=== PATIENT | male | born 1945 | race Caucasian/White ===

== ENCOUNTER 2019-03-06 15:02 | Observation (INO) | payer MEDICARE, BC ==
[2019-03-06] MEDS ORDERED: Sodium Chloride 0.9% 10 ML Syringe FLUSH PRN (15:03)
[2019-03-06] MEDS ORDERED: Sodium Chloride 0.9% 2.5 ML Syringe FLUSH PRN (15:03)
[2019-03-06] MEDS ORDERED: Sodium Chloride 0.9% 10 ML SDV IV PRN (15:03)
--- NOTE | 2019-03-06 15:07 | EDM.PDOC ---
ED HPI GENERAL MEDICAL PROBLEM - General Chief Complaint: Neuro Symptoms/Deficits Stated Complaint: STROKE CODE Time Seen by Provider: 03/06/19 15:03 Source of Information: Reports: Patient, Family History Limitations: Reports: No Limitations - History of Present Illness INITIAL COMMENTS - FREE TEXT/NARRATIVE: HISTORY AND PHYSICAL: History of present illness: Patient is a 73-year-old male presents to the ED today with concern of confusion patient's states that they are watching dogs for a family friend. Patient's states that he had come into the house and didn't remember who they were watching the dog's for his dogs they were. states she got him in the vehicle and was unsure whose vehicle was. Patient states he does feel confused and is unsure of the time. states last known time while is 12:30 PM. Patient's states she did give him a dose of aspirin before coming to the ED. Patient denies fever, chills, chest pain, shortness of breath, or cough. Denies headache, neck stiff ness, change in vision, syncope, or near syncope. Denies nausea, vomiting, abdominal pain, diarrhea, constipation, or dysuria. Has not noted any blood in urine or stool. Patient has been eating and drinking appropriately. Review of systems: As per history of present illness and below otherwise all systems reviewed and negative. Past medical history: As per history of present illness and as reviewed below otherwise noncontributory. Surgical history: As per history of present illness and as reviewed below otherwise noncontributory. Social history: See social history for further information Family history: As per history of present illness and as reviewed below otherwise noncontributory. Physical exam: General: Patient is alert, oriented, and in no acute distress. Patient sitting comfortably on exam table. HEENT: Atraumatic, normocephalic, pupils equal and reactive bilaterally, negative for conjunctival pallor or scleral icterus, mucous membranes moist, TMs normal bilaterally, throat clear, neck supple, nontender, trachea midline. No drooling or trismus noted. No meningeal signs. No hot potato voice noted. Lungs: Clear to auscultation, breath sounds equal bilaterally, chest nontender. Heart: S1S2, regular rate and rhythm without overt murmur Abdomen: Soft, nondistended, nontender. Negative for masses or hepatosplenomegaly. Negative for costovertebral tenderness. Pelvis: Stable nontender. Genitourinary: Deferred. Rectal: Deferred. Skin: Intact, warm, dry. No lesions or rashes noted. Extremities: Atraumatic, negative for cords or calf pain. Neurovascular unremarkable. Neuro: Awake, alert, oriented. Cranial nerves II through XII unremarkable. Cerebellum unremarkable. Motor and sensory unremarkable throughout. Exam nonfocal. Notes: GCS 15. NIH 0. Stroke code was called upon arrival to the ED. Dr. Truong involved in patient care. Dr. Lezama, hospitalist, consulted on patient and will admit to observation. Voices understanding and is agreeable to plan of care. Denies any further questions or concerns at this time. Diagnostics: CBC, CMP, UA, EKG, chest x-ray, head CT, PT/INR, troponin, TSH Therapeutics: None Impression: Episode of confusion, etiology unknown Plan: 1. Admit to observation to Dr. Lezama. Definitive disposition and diagnosis as appropriate pending reevaluation and review of above. Head Pain Score (Numeric/FACES): 2 - Related Data Allergies Allergy/AdvReac Type Severity Reaction Status Date / Time No Known Allergies Allergy Verified 03/06/19 15:07 Home Meds: Home Meds . [No Known Home Meds] 03/06/19 [History] ED ROS GENERAL - Review of Systems Review Of Systems: Comprehensive ROS is negative, except as noted in HPI. ED EXAM, GENERAL - Physical Exam Exam: See Below (See dictation) Course - Vital Signs Last Recorded V/S: Last Vital Signs Temp 97.7 F 03/06/19 15:02 Pulse 72 03/06/19 15:02 Resp 18 03/06/19 15:02 BP 161/91 H 03/06/19 15:02 Pulse Ox 93 L 03/06/19 15:02 - Orders/Labs/Meds Orders: Active Orders 24 hr Category Date Time Status Admission Status [Patient Status] [ADT] Stat ADT 03/06/19 16:26 Ordered Assess Neurological Status [RC] ASDIRECTED Care 03/06/19 15:03 Active Bedrest [RC] ASDIRECTED Care 03/06/19 15:03 Active Blood Glucose Check, Bedside [RC] ONETIME Care 03/06/19 15:03 Active Cardiac Monitoring [RC] . DIRECTED Care 03/06/19 15:03 Active EKG Documentation Completion [RC] STAT Care 03/06/19 15:03 Active Height and Weight [RC] UPON Care 03/06/19 15:03 Active Initiate Acute Stroke Protocol [RC] STAT Care 03/06/19 15:03 Active NIH Stroke Scale [RC] ASDIRECTED Care 03/06/19 15:03 Active Nursing Bedside Swallow Screen [RC] ASDIRECTED Care 03/06/19 15:03 Active Oxygen Therapy [RC] ASDIRECTED Care 03/06/19 15:03 Active Stroke Education, General [RC] Click to Edit Care 03/06/19 15:03 Active Vital Signs [RC] Q15M Care 03/06/19 15:03 Active UA RFX BILL AND CULT IF INDIC [URIN] Stat Lab 03/06/19 15:03 Ordered Sodium Chloride 0.9% [Normal Saline] Med 03/06/19 15:03 Active 10 ml IV ASDIRECTED PRN Sodium Chloride 0.9% [Saline Flush] Med 03/06/19 15:03 Active 10 ml FLUSH ASDIRECTED PRN Sodium Chloride 0.9% [Saline Flush] Med 03/06/19 15:03 Active 2.5 ml FLUSH ASDIRECTED PRN Peripheral IV Insertion Adult [OM.PC] Stat Oth 03/06/19 15:03 Ordered Peripheral IV Insertion Adult [OM.PC] Stat Oth 03/06/19 15:03 Ordered Medication Orders Sodium Chloride (Saline Flush) 10 ml FLUSH ASDIRECTED PRN PRN Reason: Keep Vein Open Sodium Chloride (Saline Flush) 2.5 ml FLUSH ASDIRECTED PRN PRN Reason: Keep Vein Open Sodium Chloride (Normal Saline) 10 ml IV ASDIRECTED PRN PRN Reason: IV Use Labs: Laboratory Tests 03/06/19 03/06/19 03/06/19 Range/Units 15:15 15:15 15:15 WBC 9.23 (4.0-11.0) K/uL RBC 5.03 (4.50-5.90) M/uL Hgb 15.3 (13.0-17.0) g/dL Hct 44.9 (38.0-50.0) % MCV 89.3 (80.0-98.0) fL MCH 30.4 (27.0-32.0) pg MCHC 34.1 (31.0-37.0) g/dL RDW Std Deviation 42.0 (28.0-62.0) fl RDW Coeff of Tana 13 (11.0-15.0) % Plt Count 212 (150-400) K/uL MPV 9.00 (7.40-12.00) fL Neut % (Auto) 75.7 (48.0-80.0) % Lymph % (Auto) 13.3 L (16.0-40.0) % [place] % (Auto) 9.1 (0.0-15.0) % Eos % (Auto) 1.1 (0.0-7.0) % Baso % (Auto) 0.8 (0.0-1.5) % Neut # (Auto) 7.0 H (1.4-5.7) K/uL Lymph # (Auto) 1.2 (0.6-2.4) K/uL [place] # (Auto) 0.8 (0.0-0.8) K/uL Eos # (Auto) 0.1 (0.0-0.7) K/uL Baso # (Auto) 0.1 (0.0-0.1) K/uL Nucleated RBC % 0.0 /100WBC Nucleated RBCs # 0 K/uL INR 0.99 APTT 27.9 (18.6-31.3) SEC Sodium 141 (136-148) mmol/L Potassium 3.9 (3.5-5.1) mmol/L Chloride 104 (98-107) mmol/L Carbon Dioxide 25.4 (21.0-32.0) mmol/L BUN 17 (7.0-18.0) mg/dL Creatinine 1.4 H (0.8-1.3) mg/dL Est Cr Clr Drug Dosing TNP Estimated GFR (MDRD) 50.0 ml/min Glucose 96 (74-106) mg/dL Calcium 8.6 (8.5-10.1) mg/dL Total Bilirubin 0.4 (0.2-1.0) mg/dL AST 20 (15-37) IU/L ALT 24 (14-63) IU/L Alkaline Phosphatase 51 (46-116) U/L Troponin I < 0.050 (0.000-0.056) ng/mL Total Protein 7.2 (6.4-8.2) g/dL Albumin 4.0 (3.4-5.0) g/dL Globulin 3.2 (2.6-4.0) g/dL Albumin/Globulin Ratio 1.3 (0.9-1.6) TSH 3rd Generation 3.36 (0.36-3.74) uIU/mL Meds: Medications Generic Name Dose Route Start Last Admin Trade Name Freq PRN Reason Stop Dose Admin Sodium Chloride 10 ml 03/06/19 15:03 Saline Flush FLUSH ASDIRECTED PRN Keep Vein Open Sodium Chloride 2.5 ml 03/06/19 15:03 Saline Flush FLUSH ASDIRECTED PRN Keep Vein Open Sodium Chloride 10 ml 03/06/19 15:03 Normal Saline IV ASDIRECTED PRN IV Use Departure - Departure Time of Disposition: 16:27 Disposition: Refer to Observation Clinical Impression: Confusion - Discharge Information Referrals: PCP,Unknown [Primary Care Provider] - Forms: ED Department Discharge - My Orders Last 24 Hours: My Active Orders 03/06/19 15:03 Assess Neurological Status [RC] ASDIRECTED Bedrest [RC] ASDIRECTED Blood Glucose Check, Bedside [RC] ONETIME Cardiac Monitoring [RC] . DIRECTED EKG Documentation Completion [RC] STAT Height and Weight [RC] UPON Initiate Acute Stroke Protocol [RC] STAT NIH Stroke Scale [RC] ASDIRECTED Nursing Bedside Swallow Screen [RC] ASDIRECTED Oxygen Therapy [RC] ASDIRECTED Stroke Education, General [RC] Click to Edit Vital Signs [RC] Q15M UA RFX BILL AND CULT IF INDIC [URIN] Stat Sodium Chloride 0.9% [Normal Saline] 10 ml IV ASDIRECTED PRN Sodium Chloride 0.9% [Saline Flush] 10 ml FLUSH ASDIRECTED PRN Sodium Chloride 0.9% [Saline Flush] 2.5 ml FLUSH ASDIRECTED PRN Peripheral IV Insertion Adult [OM.PC] Stat Peripheral IV Insertion Adult [OM.PC] Stat 03/06/19 16:26 Admission Status [Patient Status] [ADT] Stat - Assessment/Plan Last 24 Hours: My Active Orders 03/06/19 15:03 Assess Neurological Status [RC] ASDIRECTED Bedrest [RC] ASDIRECTED Blood Glucose Check, Bedside [RC] ONETIME Cardiac Monitoring [RC] . DIRECTED EKG Documentation Completion [RC] STAT Height and Weight [RC] UPON Initiate Acute Stroke Protocol [RC] STAT NIH Stroke Scale [RC] ASDIRECTED Nursing Bedside Swallow Screen [RC] ASDIRECTED Oxygen Therapy [RC] ASDIRECTED Stroke Education, General [RC] Click to Edit Vital Signs [RC] Q15M UA RFX BILL AND CULT IF INDIC [URIN] Stat Sodium Chloride 0.9% [Normal Saline] 10 ml IV ASDIRECTED PRN Sodium Chloride 0.9% [Saline Flush] 10 ml FLUSH ASDIRECTED PRN Sodium Chloride 0.9% [Saline Flush] 2.5 ml FLUSH ASDIRECTED PRN Peripheral IV Insertion Adult [OM.PC] Stat Peripheral IV Insertion Adult [OM.PC] Stat 03/06/19 16:26 Admission Status [Patient Status] [ADT] Stat
--- NOTE | 2019-03-06 15:21 | CT ---
INDICATION: Amnesia. COMPARISON: None available. TECHNIQUE: CT examination of the head was performed with 3 mm thick axial sections without intravenous contrast. Images were obtained from the vertex of the skull through the skull base, and I examined the images with the brain and bone windows. Please note that all CT scans at this facility use dose modulation, iterative reconstruction, and/or weight-based dosing when appropriate to reduce radiation dose to as low as reasonably achievable. FINDINGS: : The brain is normal in appearance for the patient`s age on today`s study, with no sign of mass lesion, mass effect, hemorrhage, or edema. The ventricles and sulci are normal in appearance for the patient`s age. The visualized portions of the orbits are normal in appearance. The visualized portions of the paranasal sinuses and mastoids are clear. The osseous structures are normal in their appearance with no sign of abnormality in the skull base or calvarium. IMPRESSION: Normal noncontrast CT of the head for the patient`s age. Please note that all CT scans at this facility use dose modulation, iterative reconstruction, and/or weight-based dosing when appropriate to reduce radiation dose to as low as reasonably achievable. Dictated by Jerry Elizabeth MD @ Mar 06 2019 3:17PM Signed by Dr. Jerry Elizabeth @ Mar 06 2019 3:19PM
--- NOTE | 2019-03-06 15:54 | CR ---
EXAM DATE: 03/06/19 PATIENT'S AGE: 73 Chest: Portable view of the chest was obtained. Comparison: No prior chest x-ray. Heart size is normal. Tortuous thoracic aorta is seen. Lungs are clear with no acute parenchymal change. Bony structures are grossly intact. Impression: 1. Nothing acute is appreciated on portable chest x-ray. Diagnostic code #1 Report Signed by Proxy. OPAL
[2019-03-06 16:04] LABS: BLOOD UREA NITROGEN,BUN 17 mg/dL (7.0-18.0); CARBON DIOXIDE,CO2 25.4 mmol/L (21.0-32.0); CHLORIDE,CL 104 mmol/L (98-107); GLUCOSE RANDOM 96 mg/dL (74-106); POTASSIUM,K 3.9 mmol/L (3.5-5.1); SODIUM,NA 141 mmol/L (136-148)
[2019-03-06] MEDS ORDERED: Sodium Chloride 0.9% 1,000 ML IV SCH (17:00)
--- NOTE | 2019-03-06 17:03 | PCM.HP.2 ---
<Austin Whittaker - Last Filed: 03/06/19 18:38> H&P History of Present Illness - General Date of Service: 03/06/19 Admit Problem/Dx: Admission Diagnosis/Problem Admission Diagnosis/Problem Confusion - History of Present Illness Initial Comments - Free Text/Narative: 73 y/o male with no significant PMH who presented to the ER after his found him more confused. According to the patient, he does not remember a period of time when he was at home . He states he last remembers being in his shop and then being inside his house. Does not recall a period of time between the shop and being inside the house. Apparently, his noticed him acting more confused some slurred speech and unbalanced walking. His gave him full dose aspirin at home and brought him to the ER. In the ER, he was found to be hypertensive with SBP 160. CT head was negative for intracranial hemorrhage or masses. Troponin negative. EKG showed sinus rhythm, no ST changes. When I evaluated the patient, he was in bed. No acute distress. States that he felt better. Denied any neurological deficits. Sensation, strength intact. However, he still had difficulty remember specific time period. Denied any change in vision, nausea, vomiting, chest pain, dyspnea, abdominal pain, dysuria, diarrhea, blood in stool. Head Pain Score (Numeric/FACES): 2 - Related Data Allergies/Adverse Reactions: Allergies Allergy/AdvReac Type Severity Reaction Status Date / Time No Known Allergies Allergy Verified 03/06/19 17:07 Home Medications: Home Meds Aspirin 81 mg PO DAILY #30 tab.chew 03/07/19 [Rx] atorvaSTATin [Lipitor] 40 mg PO BEDTIME 30 Days #30 tablet 03/07/19 [Rx] Past Medical History HEENT History: Reports: None Cardiovascular History: Reports: None Respiratory History: Reports: None Gastrointestinal History: Reports: None Genitourinary History: Reports: None Musculoskeletal History: Reports: Back Pain, Chronic Neurological History: Reports: None Psychiatric History: Reports: None Endocrine/Metabolic History: Reports: None Hematologic History: Reports: None Immunologic History: Reports: AIDS Oncologic (Cancer) History: Reports: Breast Dermatologic History: Reports: None - Past Surgical History Head Surgeries/Procedures: Reports: None HEENT Surgical History: Reports: None Cardiovascular Surgical History: Reports: None Respiratory Surgical History: Reports: None GI Surgical History: Reports: None Male Surgical History: Reports: None Endocrine Surgical History: Reports: None Neurological Surgical History: Reports: None Musculoskeletal Surgical History: Reports: None Oncologic Surgical History: Reports: Biopsy of Breast, Mastectomy Dermatological Surgical History: Reports: None Social & Family History - Family History Family Medical History: Noncontributory - Tobacco Use Smoking Status *Q: Never Smoker Second Hand Smoke Exposure: No - Caffeine Use Caffeine Use: Reports: None - Alcohol Use Days Per Week of Alcohol Use: 7 Number of Drinks Per Day: 1 Total Drinks Per Week: 7 - Recreational Drug Use Recreational Drug Use: No H&P Review of Systems - Review of Systems: Review Of Systems: Comprehensive ROS is negative, except as noted in HPI. Exam - Exam Exam: See Below - Vital Signs Vital Signs: Last Vital Signs Temp 36.5 C 03/06/19 15:02 Pulse 72 03/06/19 15:02 Resp 18 03/06/19 15:02 BP 161/91 H 03/06/19 15:02 Pulse Ox 93 L 03/06/19 15:02 Weight: 129.6 kg - Exam General: Alert, Oriented, Cooperative HEENT: Pupils Equal, Pupils Reactive, Other (dry oral mucosa) Lungs: Clear to Auscultation, Normal Respiratory Effort. No: Crackles, Wheezing Cardiovascular: Regular Rate, Regular Rhythm GI/Abdominal Exam: Normal Bowel Sounds, Soft, Non-Tender, No Distention Back Exam: Normal Inspection. No: CVA Tenderness (L), CVA Tenderness (R) Extremities: Normal Inspection, Normal Range of Motion, Non-Tender, No Pedal Edema Skin: Warm, Dry Neurological: Cranial Nerves Intact Neuro Extensive - Mental Status: Alert, Oriented x3 Neuro Extensive - Motor, Sensory, Reflexes: CN II-XII Intact - Patient Data Lab Results Last 24 hrs: Laboratory Results - last 24 hr 03/06/19 03/06/19 03/06/19 Range/Units 15:15 15:15 15:15 WBC 9.23 (4.0-11.0) K/uL RBC 5.03 (4.50-5.90) M/uL Hgb 15.3 (13.0-17.0) g/dL Hct 44.9 (38.0-50.0) % MCV 89.3 (80.0-98.0) fL MCH 30.4 (27.0-32.0) pg MCHC 34.1 (31.0-37.0) g/dL RDW Std Deviation 42.0 (28.0-62.0) fl RDW Coeff of Tana 13 (11.0-15.0) % Plt Count 212 (150-400) K/uL MPV 9.00 (7.40-12.00) fL Neut % (Auto) 75.7 (48.0-80.0) % Lymph % (Auto) 13.3 L (16.0-40.0) % [place] % (Auto) 9.1 (0.0-15.0) % Eos % (Auto) 1.1 (0.0-7.0) % Baso % (Auto) 0.8 (0.0-1.5) % Neut # (Auto) 7.0 H (1.4-5.7) K/uL Lymph # (Auto) 1.2 (0.6-2.4) K/uL [place] # (Auto) 0.8 (0.0-0.8) K/uL Eos # (Auto) 0.1 (0.0-0.7) K/uL Baso # (Auto) 0.1 (0.0-0.1) K/uL Nucleated RBC % 0.0 /100WBC Nucleated RBCs # 0 K/uL INR 0.99 APTT 27.9 (18.6-31.3) SEC Sodium 141 (136-148) mmol/L Potassium 3.9 (3.5-5.1) mmol/L Chloride 104 (98-107) mmol/L Carbon Dioxide 25.4 (21.0-32.0) mmol/L BUN 17 (7.0-18.0) mg/dL Creatinine 1.4 H (0.8-1.3) mg/dL Est Cr Clr Drug Dosing TNP Estimated GFR (MDRD) 50.0 ml/min Glucose 96 (74-106) mg/dL Calcium 8.6 (8.5-10.1) mg/dL Total Bilirubin 0.4 (0.2-1.0) mg/dL AST 20 (15-37) IU/L ALT 24 (14-63) IU/L Alkaline Phosphatase 51 (46-116) U/L Troponin I < 0.050 (0.000-0.056) ng/mL Total Protein 7.2 (6.4-8.2) g/dL Albumin 4.0 (3.4-5.0) g/dL Globulin 3.2 (2.6-4.0) g/dL Albumin/Globulin Ratio 1.3 (0.9-1.6) TSH 3rd Generation 3.36 (0.36-3.74) uIU/mL Result Diagrams: 03/06/19 15:15 03/06/19 15:15 Problem List Initiated/Reviewed/Updated: Yes Orders Last 24hrs: Active Orders 24 hr Category Date Time Status Admission Status [Patient Status] [ADT] Stat ADT 03/06/19 16:26 Active Assess Neurological Status [RC] Q6H Care 03/06/19 15:03 Active Cardiac Monitoring [RC] . DIRECTED Care 03/06/19 15:03 Active Intake and Output [RC] QSHIFT Care 03/06/19 16:56 Active NIH Stroke Scale [RC] Q6H Care 03/06/19 15:03 Active Nursing Bedside Swallow Screen [RC] ASDIRECTED Care 03/06/19 15:03 Active Oxygen Therapy [RC] PRN Care 03/06/19 16:56 Active Stroke Education, General [RC] Click to Edit Care 03/06/19 15:03 Active Up With Assistance [RC] ASDIRECTED Care 03/06/19 16:56 Active VTE/DVT Education [RC] PER UNIT ROUTINE Care 03/06/19 16:56 Active Vital Signs [RC] Q4H Care 03/06/19 16:56 Active Consult to Physical Therapy [PT Evaluation and Cons 03/06/19 16:58 Active Treatment] [CONS] Routine Regular Diet [DIET] Diet 03/06/19 Dinner Active Ang Neck w wo Cont [MR] Urgent Exams 03/06/19 16:59 Ordered Brain w wo Cont [MR] Routine Exams 03/06/19 16:59 Ordered CBC WITH AUTO DIFF [HEME] AM Lab 03/07/19 05:11 Ordered COMPREHENSIVE METABOLIC PN,CMP [CHEM] AM Lab 03/07/19 05:11 Ordered GLYCOSYLATED HEMOGLOBIN,HGBA1C [CHEM] Routine Lab 03/06/19 17:00 Ordered LIPID PANEL [CHEM] AM Lab 03/07/19 05:11 Ordered UA RFX BILL AND CULT IF INDIC [URIN] Stat Lab 03/06/19 15:03 Ordered VITAMIN B12 [CHEM] AM Lab 03/07/19 05:11 Ordered Aspirin Med 03/07/19 09:00 Ordered 81 mg PO DAILY Heparin Sodium Med 03/06/19 17:00 Active 5,000 units SUBCUT Q8H Sodium Chloride 0.9% [Normal Saline] Med 03/06/19 15:03 Active 10 ml IV ASDIRECTED PRN Sodium Chloride 0.9% [Normal Saline] 1,000 ml Med 03/06/19 17:00 Ordered IV BOLUS Sodium Chloride 0.9% [Saline Flush] Med 03/06/19 15:03 Active 10 ml FLUSH ASDIRECTED PRN Sodium Chloride 0.9% [Saline Flush] Med 03/06/19 15:03 Active 2.5 ml FLUSH ASDIRECTED PRN Peripheral IV Insertion Adult [OM.PC] Stat Oth 03/06/19 15:03 Ordered Peripheral IV Insertion Adult [OM.PC] Stat Oth 03/06/19 15:03 Ordered Resuscitation Status Routine Resus Stat 03/06/19 16:56 Ordered Medication Orders Aspirin (Aspirin) 81 mg PO DAILY JIM Heparin Sodium (Porcine) (Heparin Sodium) 5,000 units SUBCUT Q8H JIM Sodium Chloride (Normal Saline) 1,000 mls @ 999 mls/hr IV BOLUS JIM Stop: 03/06/19 18:01 Sodium Chloride (Saline Flush) 10 ml FLUSH ASDIRECTED PRN PRN Reason: Keep Vein Open Sodium Chloride (Saline Flush) 2.5 ml FLUSH ASDIRECTED PRN PRN Reason: Keep Vein Open Sodium Chloride (Normal Saline) 10 ml IV ASDIRECTED PRN PRN Reason: IV Use Assessment/Plan Comment:: A: 1. Amnesia 2. Acute kidney injury P: 1. Amnesia- unsure etiology. Suspect TIA vs [employer]. Ordered MRI brain and neck w/ wo contrast. Aspirin daily. Neuro checks Q6H. PT evaluation. 2. Acute kidney injury- will bolus with 1 L NS and recheck in the morning. Dispo: 1-2 days <Jean Lezama - Last Filed: 03/08/19 12:04> H&P History of Present Illness - General Admit Problem/Dx: Admission Diagnosis/Problem Admission Diagnosis/Problem Confusion Exam - Vital Signs Vital Signs: Last Vital Signs Temp 36.1 C 03/07/19 11:48 Pulse 59 L 03/07/19 11:48 Resp 18 03/07/19 11:48 BP 135/79 03/07/19 11:48 Pulse Ox 95 03/07/19 11:48 - Patient Data Result Diagrams: 03/07/19 06:23 03/07/19 06:23 Orders Last 24hrs: Active Orders 24 hr Category Date Time Status Ready for Discharge [RC] PER UNIT ROUTINE Care 03/07/19 12:10 Active Assessment/Plan Comment:: I performed a history and physical exam of the patient and discussed management with resident. I have reviewed the residents note and agree with documented findings and plan unless otherwise specified in my note.
[2019-03-06] MEDS ORDERED: Gadobenate Dimeglumine 529 MG/ML 20 ML SDV IVPUSH ONE (17:22)
[2019-03-06 17:33] LABS: HEMOGLOBIN A1C 5.5 % (4.5-6.2)
[2019-03-06] MEDS: Heparin Sodium 5,000 Units/ML Vial SUBCUT SCH (18:47)
[2019-03-06] MEDS ORDERED: Sodium Chloride 0.9% 1,000 ML IV ONE (19:00)
[2019-03-06] MEDS ORDERED: Labetalol 100 MG/20 ML MDV IVPUSH ONE (19:17)
[2019-03-06] MEDS ORDERED: Labetalol 100 MG/20 ML MDV IVPUSH PRN (20:25)
[2019-03-06] MEDS ORDERED: atorvaSTATin 40 MG Tab PO SCH (22:21)
[2019-03-07] MEDS: Heparin Sodium 5,000 Units/ML Vial SUBCUT SCH ×2 (00:31→09:29)
[2019-03-07 07:30] LABS: CARBON DIOXIDE,CO2 25.7 mmol/L (21.0-32.0); POTASSIUM,K 4.7 mmol/L (3.5-5.1)
[2019-03-07] MEDS ORDERED: Aspirin 81 MG Tab.Chew PO SCH (09:00)
--- NOTE | 2019-03-07 11:48 | MR ---
EXAM DATE: 03/06/19 PATIENT'S AGE: 73 Patient: MARLENE JOLLEY Facility: [facility] Site Site : [id number] Study: MRI-Head W/ and W/O Cont [id number]/[id number] 6:46:42 PM Ordering Physician: GORDON CARY Final Report: INDICATION: TIA and confusion. TECHNIQUE: Brain MRI with contrast. The following sequences were obtained: Sagittal T1 weighted sequence. DWI and ADC mapping sequences. Axial FLAIR and NA T2 weighted sequences. SWI sequence. 3D T1 weighted post-contrast sequences. Gadolinium based contrast agent was used. COMPARISON: CT head from 03/06/2019. FINDINGS: No acute infarct. Diffuse supratentorial and infratentorial pachymeningeal thickening and enhancement. Small, 3-4 nodule of enhancement is seen along the floor of the right middle cranial fossa. Nonspecific but could be vascular. 4 millimeter diameter FLAIR hyperintense subdural collection along the right parietal convexity. Scattered T2 hyperintensities within the supratentorial white matter, nonspecific but statistically most likely reflect chronic small vessel ischemic disease. No mass effect or herniation. No hydrocephalus or extra -axial collections. The pituitary gland, parasellar structures and optic chiasm are normal. Small, 1 centimeter pineal gland cyst. All the major intracranial vascular structures demonstrate normal flow-related signal. The orbital contents are normal. No calvarial or skull base marrow signal abnormality. No obstructive sinus disease. No extracranial soft tissue findings. IMPRESSION: 1. Diffuse pachymeningeal thickening and enhancement and small right parietal convexity subdural hematoma or a hematohygroma. These findings most likely represents sequelae of intracranial hypotension. Inflammatory and neoplastic processes are considered less likely given the diffuse nature of this enhancement. 2. Small nodule of enhancement is seen along the floor of the right middle cranial fossa, nonspecific. 3. No evidence of acute infarction. 4. Mild chronic small vessel ischemic disease within the supratentorial white matter. Dictated by Chris Szymanski MD @ Mar 06 2019 7:28PM Signed by: Chris Szymanski MD @03/06/2019 8:07:13 PM (Electronic Signature) MRI brain (without and with intravenous contrast) Technique: T1 sagittal and coronal; T1, T2, FLAIR and diffusion axial; postcontrast T1 fat suppressed sagittal, coronal and axial images were obtained to the brain. Comparison: No prior intracranial imaging is available. Findings: Ventricles along with basal cisterns and sulci over the convexities are mildly prominent. Normal signal void is seen within the major cerebral arteries within the skull base. Minimal areas of increased signal seen within the periventricular white matter on the left side. Minimal area of increased signal within the subcortical white matter within the left frontal region. No other abnormal signal is seen within the brain parenchyma. No midline shift or mass effect is seen. No acute diffusion abnormalities are seen. Slightly prominent enhancement of the meninges around both sides of the brain is noted. No abnormal enhancement is seen within the brain parenchyma. Impression: 1. Minimally prominent enhancement of the meninges around the brain. Please exclude any symptoms of meningitis. Findings could also represent residual change from old inflammatory process. This enhancement does not appear nodular to indicate a metastatic etiology. 2. Minimal areas of increased signal within the periventricular and subcortical white matter which are not unusual for a patient of this age. 3. No acute diffusion abnormalities are seen. Diagnostic code #3 Report Signed by Proxy. OPAL
--- NOTE | 2019-03-07 11:52 | MR ---
EXAM DATE: 03/06/19 PATIENT'S AGE: 73 Patient: MARLENE JOLLEY Facility: [facility] Site Site : 1945 Study: MRI-Neck Angio W/ and W/O Cont [id number]/13/2019 6:50:35 PM Ordering Physician: GORDON CARY Final Report: INDICATION: TIA and confusion. TECHNIQUE: 3D TOF and gadolinium bolus MRA of the neck with 3D MIP reconstructions provided. All measurements are based on NASCET criteria. COMPARISON : None. FINDINGS: There is a normal 3 vessel configuration of the aortic arch, with no substantial narrowing of the great vessel origins. The proximal subclavian arteries are normal in course and caliber. The cervical carotid arteries are normal in course and caliber. The cervical vertebral arteries are normal in course and caliber. IMPRESSION: IMPRESSION1. Normal appearance of the cervical arterial circulation, with no stenosis, occlusion or abnormal dilatation. Dictated by Chris Szymanski MD @ Mar 06 2019 7:28PM Signed by: Chris Szymanski MD @03/06/2019 8:12:46 PM (Electronic Signature) Report Signed by Proxy. OPAL
--- NOTE | 2019-03-07 21:05 | PCM.DCSUM1 ---
<Austin Whittaker - Last Filed: 03/08/19 20:54> Discharge Summary - Hospital Course Free Text/Narrative:: 73 y/o male with no significant PMH who presented to the ER for confusion. The patient could not recollect a period in time at home and his had noticed some slurred speech. In the ER, he was found to be hypertensive 160/90. EKG unremarkable. CT head was negative for any intracranial hemorrhage, masses. He was admitted for presumed transient ischemic attack. MRI brain, neck did not show carotid stenosis or any acute ischemic findings. He did not have any neurological deficits on examination. He was discharged home on aspirin and atorvastatin. Instructed to follow-up with his PCP and neurology. - Discharge Data Discharge Date: 03/07/19 Discharge Disposition: Home, Self-Care 01 Condition: Good - Referral to Home Health Primary Care Physician: PCP Unknown - Patient Summary/Data Consults: Consultations 03/06/19 16:58 Consult to Physical Therapy [PT Evaluation and Treatment] [CONS] Routine - Patient Instructions Diet: Heart Healthy Diet Activity: As Tolerated Notify Provider of: Fever, Increased Pain, Nausea and/or Vomiting - Discharge Plan Prescriptions/Med Rec: Aspirin 81 mg PO DAILY #30 tab.chew atorvaSTATin [Lipitor] 40 mg PO BEDTIME 30 Days #30 tablet Home Medications: Home Meds Aspirin 81 mg PO DAILY #30 tab.chew 03/07/19 [Rx] atorvaSTATin [Lipitor] 40 mg PO BEDTIME 30 Days #30 tablet 03/07/19 [Rx] Patient Handouts: Transient Ischemic Attack, [id number], Atorvastatin tablets , Preventing Cerebrovascular Disease, Aspirin capsules or tablets extended release Referrals: Rayshawn Guzman PA-C [Ordering Only Provider] - 03/19/19 10:00 am Breanne Nevarez MD [Physician] - - Discharge Summary/Plan Comment DC Time >30 min.: No - Patient Data Vitals - Most Recent: Last Vital Signs Temp 36.1 C 03/07/19 11:48 Pulse 59 L 03/07/19 11:48 Resp 18 03/07/19 11:48 BP 135/79 03/07/19 11:48 Pulse Ox 95 03/07/19 11:48 Weight - Most Recent: 129.6 kg I&O - Last 24 hours: Intake & Output 1103/07/19 03/07/19 06:59 14:59 22:59 Intake Total 1500 750 Output Total 1650 850 Balance -150 -100 Lab Results - Last 24 hrs: Laboratory Results - last 24 hr 03/07/19 03/07/19 Range/Units 06:23 06:23 WBC 6.28 (4.0-11.0) K/uL RBC 4.70 (4.50-5.90) M/uL Hgb 14.3 (13.0-17.0) g/dL Hct 41.9 (38.0-50.0) % MCV 89.1 (80.0-98.0) fL MCH 30.4 (27.0-32.0) pg MCHC 34.1 (31.0-37.0) g/dL RDW Std Deviation 41.8 (28.0-62.0) fl RDW Coeff of Tana 13 (11.0-15.0) % Plt Count 164 (150-400) K/uL MPV 9.90 (7.40-12.00) fL Neut % (Auto) 65.3 (48.0-80.0) % Lymph % (Auto) 19.6 (16.0-40.0) % Barry % (Auto) 11.9 (0.0-15.0) % Eos % (Auto) 2.1 (0.0-7.0) % Baso % (Auto) 1.1 (0.0-1.5) % Neut # (Auto) 4.1 (1.4-5.7) K/uL Lymph # (Auto) 1.2 (0.6-2.4) K/uL Barry # (Auto) 0.8 (0.0-0.8) K/uL Eos # (Auto) 0.1 (0.0-0.7) K/uL Baso # (Auto) 0.1 (0.0-0.1) K/uL Nucleated RBC % 0.0 /100WBC Nucleated RBCs # 0 K/uL Sodium 141 (136-148) mmol/L Potassium 4.7 (3.5-5.1) mmol/L Chloride 108 H (98-107) mmol/L Carbon Dioxide 25.7 (21.0-32.0) mmol/L BUN 15 (7.0-18.0) mg/dL Creatinine 1.3 (0.8-1.3) mg/dL Est Cr Clr Drug Dosing 60.60 mL/min Estimated GFR (MDRD) 54.4 ml/min Glucose 89 (74-106) mg/dL Calcium 8.5 (8.5-10.1) mg/dL Total Bilirubin 0.7 (0.2-1.0) mg/dL AST 19 (15-37) IU/L ALT 24 (14-63) IU/L Alkaline Phosphatase 37 L (46-116) U/L Total Protein 6.4 (6.4-8.2) g/dL Albumin 3.4 (3.4-5.0) g/dL Globulin 3.0 (2.6-4.0) g/dL Albumin/Globulin Ratio 1.1 (0.9-1.6) Triglycerides 65 (0-200) mg/dL Cholesterol 161 (50-200) mg/dL LDL Cholesterol, Calc 92 (60-180) mg/dL VLDL Cholesterol 13 (5-55) mg/dL HDL Cholesterol 56 (40-60) mg/dL Cholesterol/HDL Ratio 2.9 L (3.3-6.0) Vitamin B12 557 (193-986) pg/mL Med Orders - Current: Current Medications Discontinued Medications Aspirin (Aspirin) 81 mg PO DAILY [facility] Last Admin: 03/07/19 09:29 Dose: 81 mg Atorvastatin Calcium (Lipitor) 40 mg PO BEDTIME [facility] Last Admin: 03/07/19 00:31 Dose: 40 mg Gadobenate Dimeglumine (Multihance) 20 ml IVPUSH ONETIME ONE Stop: 03/06/19 17:23 Last Admin: 03/06/19 17:22 Dose: 20 ml Heparin Sodium (Porcine) (Heparin Sodium) 5,000 units SUBCUT Q8H [facility] Last Admin: 03/07/19 09:29 Dose: 5,000 units Sodium Chloride (Normal Saline) 1,000 mls @ 999 mls/hr IV BOLUS JIM Stop: 03/06/19 18:01 Sodium Chloride (Normal Saline) 1,000 mls @ 999 mls/hr IV ASDIRECTED ONE Stop: 03/06/19 20:00 Last Admin: 03/06/19 18:57 Dose: 999 mls/hr Labetalol HCl (Normodyne) 0 mg IVPUSH ONETIME ONE; Protocol Stop: 03/06/19 19:18 Last Admin: 03/06/19 20:14 Dose: Not Given Labetalol HCl (Normodyne) 10 mg IVPUSH Q6H PRN; Protocol PRN Reason: Hypertension Sodium Chloride (Saline Flush) 10 ml FLUSH ASDIRECTED PRN PRN Reason: Keep Vein Open Sodium Chloride (Saline Flush) 2.5 ml FLUSH ASDIRECTED PRN PRN Reason: Keep Vein Open Sodium Chloride (Normal Saline) 10 ml IV ASDIRECTED PRN PRN Reason: IV Use <TejaJean - Last Filed: 03/09/19 21:53> Discharge Summary - Hospital Course HPI Initial Comments: I have performed history and physical and have discussed the patient management with the resident and agree with note above unless stated otherwise in my note. - Referral to Home Health Primary Care Physician: PCP Unknown - Patient Summary/Data Consults: Consultations 03/06/19 16:58 Consult to Physical Therapy [PT Evaluation and Treatment] [CONS] Routine - Patient Data Vitals - Most Recent: Last Vital Signs Temp 36.1 C 03/07/19 11:48 Pulse 59 L 03/07/19 11:48 Resp 18 03/07/19 11:48 BP 135/79 03/07/19 11:48 Pulse Ox 95 03/07/19 11:48 Med Orders - Current: Current Medications Discontinued Medications Aspirin (Aspirin) 81 mg PO DAILY [facility] Last Admin: 03/07/19 09:29 Dose: 81 mg Atorvastatin Calcium (Lipitor) 40 mg PO BEDTIME [facility] Last Admin: 03/07/19 00:31 Dose: 40 mg Gadobenate Dimeglumine (Multihance) 20 ml IVPUSH ONETIME ONE Stop: 03/06/19 17:23 Last Admin: 03/06/19 17:22 Dose: 20 ml Heparin Sodium (Porcine) (Heparin Sodium) 5,000 units SUBCUT Q8H [facility] Last Admin: 03/07/19 09:29 Dose: 5,000 units Sodium Chloride (Normal Saline) 1,000 mls @ 999 mls/hr IV BOLUS JIM Stop: 03/06/19 18:01 Sodium Chloride (Normal Saline) 1,000 mls @ 999 mls/hr IV ASDIRECTED ONE Stop: 03/06/19 20:00 Last Admin: 03/06/19 18:57 Dose: 999 mls/hr Labetalol HCl (Normodyne) 0 mg IVPUSH ONETIME ONE; Protocol Stop: 03/06/19 19:18 Last Admin: 03/06/19 20:14 Dose: Not Given Labetalol HCl (Normodyne) 10 mg IVPUSH Q6H PRN; Protocol PRN Reason: Hypertension Sodium Chloride (Saline Flush) 10 ml FLUSH ASDIRECTED PRN PRN Reason: Keep Vein Open Sodium Chloride (Saline Flush) 2.5 ml FLUSH ASDIRECTED PRN PRN Reason: Keep Vein Open Sodium Chloride (Normal Saline) 10 ml IV ASDIRECTED PRN PRN Reason: IV Use
== END 2019-03-07 14:15 | disposition home or self-care (01) ==
LOC: MW.ED 15:02 → MW.MS 16:38
PROVIDERS: ADMIT Student in an Organized Health Care Education/Training Program; ATTEND Student in an Organized Health Care Education/Training Program
DX: R41.3 Other amnesia (principal); N17.9 Acute kidney failure, unspecified; I10 Essential (primary) hypertension; Z79.82 Long term (current) use of aspirin; Z79.899 Other long term (current) drug therapy
CPT/HCPCS: 36415; 70450; 70549; 70553; 71045; 80053; 80061; 81003; 82607; 83036; 84443; 84484; 85025; 85610; 85730; 93005; 96360; 96361; 96372; 97161; 99285; A9270; A9577; G0378; J1644; J7040; 99284; J7030

== ENCOUNTER 2020-06-03 08:50 | Day surgery (SDC) | payer MEDICARE, BC ==
[~2020-06-03 08:50] MED LIST: Lactated Ringers 1,000 ML IV SCH; Lidocaine 2% 5 ML SDV ONE; Midazolam 1 MG/ML 2 ML SDV ONE; Propofol 200 MG/20 ML SDV ONE; fentaNYL 100 MCG/2 ML SDV ONE
[2020-06-03] MEDS ORDERED: Midazolam 1 MG/ML 2 ML SDV ONE (09:05)
--- NOTE | 2020-06-03 09:22 | PCM.PREANE ---
Preanesthetic Assessment - Anesthesia/Transfusion/Family Hx Anesthesia History: Prior Anesthesia Without Reaction Family History of Anesthesia Reaction: No Transfusion History: No Prior Transfusion(s) Intubation History: Unknown - Review of Systems General: No Symptoms Pulmonary: No Symptoms Cardiovascular: No Symptoms Gastrointestinal: Abdominal Pain, Hematochezia Neurological: No Symptoms Other: Reports: None - Physical Assessment Vital Signs: Last Vital Signs Temp 36.1 C 06/03/20 08:56 Pulse 82 06/03/20 08:56 Resp 16 06/03/20 08:56 BP 137/91 H 06/03/20 08:56 Pulse Ox 98 06/03/20 08:56 Height: 6 ft 2 in Weight: 114.759 kg ASA Class: 2 Mental Status: Alert & Oriented x3 Airway Class: Mallampati = 2 Dentition: Reports: Normal Dentition, Implants (x1 upper front) Thyro-Mental Finger Breadths: 3 Mouth Opening Finger Breadths: 3 ROM/Head Extension: Full Lungs: Clear to Auscultation, Normal Respiratory Effort Cardiovascular: Regular Rate, Regular Rhythm - Allergies Allergies/Adverse Reactions: Allergies Allergy/AdvReac Type Severity Reaction Status Date / Time No Known Allergies Allergy Verified 05/29/20 08:23 - Blood Blood Available: No - Anesthesia Plan Pre-Op Medication Ordered: None - Acknowledgements Anesthesia Type Planned: MAC Pt an Appropriate Candidate for the Planned Anesthesia: Yes Alternatives and Risks of Anesthesia Discussed w Pt/Guardian: Yes Pt/Guardian Understands and Agrees with Anesthesia Plan: Yes PreAnesthesia Questionnaire HEENT History: Reports: Other (See Below) Other HEENT History: wears glasses Cardiovascular History: Reports: None Respiratory History: Reports: None Gastrointestinal History: Reports: Chronic Constipation Genitourinary History: Reports: None Musculoskeletal History: Reports: Back Pain, Chronic Neurological History: Reports: TIA (1 1/2 years ago with memory loss for about and hour, second brain MRI was normal) Psychiatric History: Reports: None Endocrine/Metabolic History: Reports: Obesity/BMI 30+ (BMI 32.5) Hematologic History: Reports: None Immunologic History: Reports: None Oncologic (Cancer) History: Reports: Breast (h/o left breast cancer '03- No BP c uff or i.v. on the left side , please.) Dermatologic History: Reports: None - Past Surgical History Head Surgeries/Procedures: Reports: None HEENT Surgical History: Reports: None Cardiovascular Surgical History: Reports: None Respiratory Surgical History: Reports: None GI Surgical History: Reports: Colonoscopy (few years ago by Dr. Bailey) Male Surgical History: Reports: None Endocrine Surgical History: Reports: None Neurological Surgical History: Reports: None Musculoskeletal Surgical History: Reports: Carpal Tunnel, Hip Replacement ('07) Other Musculoskeletal Surgeries/Procedures:: rt hip replacement Oncologic Surgical History: Reports: Biopsy of Breast Other Oncologic Surgeries/Procedures: breast lumpectomy '03 Dermatological Surgical History: Reports: None - SUBSTANCE USE Tobacco Use Status *Q: Never Tobacco User Days Per Week of Alcohol Use: 7 Number of Drinks Per Day: 1 Total Drinks Per Week: 7 Recreational Drug Use History: No - HOME MEDS Home Medications: Home Meds Ibuprofen [Advil] 1 tab PO ASDIRECTED PRN 05/29/20 [History] bisacodyL [Dulcolax] 1 tab PO ASDIRECTED PRN 05/29/20 [History] - CURRENT (IN HOUSE) MEDS Current Meds: Current Medications Lactated Ringer's (Ringers, Lactated) 1,000 mls @ 125 mls/hr IV ASDIRECTED JIM Discontinued Medications Fentanyl (Sublimaze) Confirm Administered Dose 100 mcg .ROUTE .STK-MED ONE Stop: 06/03/20 08:27 Lidocaine (Xylocaine-Mpf 2%) Confirm Administered Dose 5 ml .ROUTE .STK-MED ONE Stop: 06/03/20 08:27 Midazolam HCl (Versed 1 Mg/Ml) Confirm Administered Dose 2 mg .ROUTE .STK-MED ONE Stop: 06/03/20 07:17 Midazolam HCl (Versed 1 Mg/Ml) Confirm Administered Dose 2 mg .ROUTE .STK-MED ONE Stop: 06/03/20 09:06 Propofol (Diprivan 20 Ml) Confirm Administered Dose 600 mg .ROUTE .STK-MED ONE Stop: 06/03/20 07:17 Propofol (Diprivan 20 Ml) Confirm Administered Dose 400 mg .ROUTE .STK-MED ONE Stop: 06/03/20 08:27
[2020-06-03] MEDS ORDERED: Propofol 200 MG/20 ML SDV ONE (10:02)
--- NOTE | 2020-06-03 11:10 | PCM.POSTAN ---
POST ANESTHESIA ASSESSMENT - MENTAL STATUS Mental Status: Alert, Oriented - VITAL SIGNS Vital Signs: Last Vital Signs Temp 36.2 C 06/03/20 10:59 Pulse 59 L 06/03/20 10:59 Resp 14 06/03/20 10:59 BP 11/66 L 06/03/20 10:59 Pulse Ox 97 06/03/20 10:59 - RESPIRATORY Respiratory Status: Respiratory Rate WNL, Airway Patent, O2 Saturation Stable - CARDIOVASCULAR CV Status: Pulse Rate WNL, Blood Pressure Stable - GASTROINTESTINAL GI Status: No Symptoms - PAIN Pain Score: 0 - POST OP HYDRATION Hydration Status: Adequate & Stable - OBSERVATIONS Free Text/Narrative:: No anesthesia problems
--- NOTE | 2020-06-03 11:14 | PCM.OPNOTE ---
- General Post-Op/Procedure Note Date of Surgery/Procedure: 06/03/20 Operative Procedure(s): colonoscope w snare Findings: see [id number] Pre Op Diagnosis: BRBPR Post-Op Diagnosis: colon polyps and hemorrhoid Anesthesia Technique: Moderate Sedation Primary Surgeon: Kyree Ricketts Pathology: polyps at 80cm,120cm, and 145 cm biopsy or irregular surface Complications: None Condition: Good Free Text/Narrative:: Intake & Output 06/02/20 06/03/20 06/03/20 22:59 06:59 14:59 Intake Total 600 Balance 600
--- NOTE | 2020-06-03 11:24 | PCM48HPAN ---
Post Anesthesia Note - EVALUATION WITHIN 48HRS OF ANESTHETIC Vital Signs in Normal Range: Yes Patient Participated in Evaluation: Yes Respiratory Function Stable: Yes Airway Patent: Yes Cardiovascular Function Stable: Yes Hydration Status Stable: Yes Pain Control Satisfactory: Yes Nausea and Vomiting Control Satisfactory: Yes Mental Status Recovered: Yes Vital Signs: Last Vital Signs Temp 36.2 C 06/03/20 10:59 Pulse 59 L 06/03/20 10:59 Resp 14 06/03/20 10:59 BP 11/66 L 06/03/20 10:59 Pulse Ox 97 06/03/20 10:59 - COMMENTS/OBSERVATIONS Free Text/Narrative:: No anesthesia problems
--- NOTE | 2020-06-03 17:33 | OR ---
SURGEON: Kyree Ricketts MD DATE OF PROCEDURE: 06/03/2020 PREOPERATIVE DIAGNOSIS: Bright red blood per rectum. POSTOPERATIVE DIAGNOSIS: Colon polyp. PROCEDURE PERFORMED: Colonoscopy with snare polypectomy. PRIMARY SURGEON: Kryee Ricketts MD COMPLICATIONS: None. DESCRIPTION OF PROCEDURE: The patient was taken to the endoscopy room. A time out was called, patient identified, and procedure identified. Diprivan was then administrated. Patient went from awake to sleep, hearing doctor talking or door closing is normal. Perineum inspection and digital examination were then performed. A well- lubricated colonoscope was gently inserted through the rectum, advanced past the rectosigmoid junction, the descending colon, splenic flexure, transverse colon, hepatic flexure, ascending colon, arrived to the cecum. Cecum was identified as dictated in the finding. Then the scope was carefully withdrawn while attention was paid to the mucosal surface for any abnormality. Air will be sucked out during the scope withdrawal. At the rectum, retroflexed to examine any rectal diseases, fistula or hemorrhoids. During mucosal examination, abnormality or polyp encountered. Using snare equipment, the abnormality or the polyp was then snared off using electrocautery. The patient tolerated procedure well. There were no intraoperative complications, and Dr. Ricketts was present throughout the whole procedure. FINDINGS: 1. The patient is easily sedated with SHEEPSKIN PICKLER and Diprivan, the patient is soundly snoring. 2. Bowel prep is average, large amount of liquid stool, no semi-formed stool, one stool ball. 3. The patient's colon is extremely redundant at the sigmoid colon. Several maneuvers, still cannot get into the cecum. Cecum can only be observed from a distance. Put the patient on the back and counter pressure, still not able to get into the cecum, but we were able to observe at a distance, indicated by ScopeGuide pointing south and ileocecal fold and one-to-one indentation. Mucosa examined upon scope pulling out with constant irrigation. The patient has three polyps, 2 mm sessile polyps, two of them, at distance 80 when the scope went in, and removed with cold biopsy forceps, two of them. Then, a 5 mm sessile polyp at distance 120 when the scope went in and removed with snare polypectomy. Then, the last one is a 2 mm sessile polyp at distance 145 when scope went out and used cold biopsy forceps. Other than that, the patient does not have diverticulosis, other growth, inflammation, stricture, AV malformation, bleeding. Liquid stool was yellow in color. The patient does have mild internal hemorrhoids, no external hemorrhoids. The patient would benefit from repeat colonoscopy depending on the biopsy outcome, and the patient is 74 years old. DEAN LINTON /[id number]
== END 2020-06-03 11:32 | disposition home or self-care (01) ==
LOC: MW.SDS 08:50
PROVIDERS: ATTEND Surgery
DX: D12.6 Benign neoplasm of colon, unspecified (principal); K59.09 Other constipation; K64.8 Other hemorrhoids; R41.3 Other amnesia; E66.9 Obesity, unspecified; Z68.32 Body mass index [BMI] 32.0-32.9, adult; Z85.3 Personal history of malignant neoplasm of breast; Z87.891 Personal history of nicotine dependence; Z98.890 Other specified postprocedural states
CPT/HCPCS: 45380; 45385; J2250; J2704; J7120; 00811; 88305; J3010